=== PATIENT | female | born 1985 | race Caucasian/White ===

== ENCOUNTER 2024-08-20 10:14 | Emergency (ER) | payer SELFPAY ==
[2024-08-20 10:21] VITALS: BP 166/105; PULSE 87; RESP 18; TEMP 36.7; O2SAT 98
[2024-08-20 10:29] VITALS: PULSE 92; O2SAT 99
--- NOTE | 2024-08-20 11:15 | PD.EDRME ---
Rapid Medical Screening Exam RME Arrival date/time: 08/20/24 10:14 39-year-old female presents emergency department via EMS with complaints of elevated blood sugar Chief Complaint: Recheck/Abnormal Lab/Rx Vital signs: Vital Signs Temperature 98.1 F 08/20/24 10:21 Pulse Rate 87 08/20/24 10:21 Respiratory Rate 18 08/20/24 10:21 Blood Pressure 166/105 H 08/20/24 10:21 Pulse Oximetry (%) 98 08/20/24 10:21 Oxygen Delivery Method Room Air 08/20/24 10:21
[2024-08-20 11:31] LABS: Base Excess, Venous 0 (-3-3); O2 Saturation, Venous 99 % (96-97); PCO2, Venous 30 mmHg (36-56); PO2, Venous 91 mmHg (15-58); pH, Venous 7.49 (7.33-7.66)
[2024-08-20 11:34] LABS: Basophils # (Auto) 0.1 Thou/mm3 (0.0-0.2); Basophils % (Auto) 1 % (0-2.5); Eosinophils # (Auto) 0.3 Thou/mm3 (0.0-0.5); Eosinophils % (Auto) 4 % (0-10); Hematocrit 37.3 % (36.0-46.0); Immature Granulocytes % (Auto) 0 % (0-0); Immature Granulocytes Auto 0.03 Thou/mm3 (0.00-0.00); Lymphocytes # (Auto) 2.2 Thou/mm3 (1.0-4.8); Lymphocytes % (Auto) 27 % (10-50); Mean Corpuscular HGB Conc 34.9 g/dl (31.0-37.0); Mean Corpuscular Hemoglobin 30.8 pg (25.0-35.0); Mean Corpuscular Volume 88 fL (80-100); Monocytes # (Auto) 0.4 Thou/mm3 (0.0-0.8); Monocytes % (Auto) 5 % (0-12); Neutrophils # (Auto) 5.1 Thou/mm3 (1.8-7.7); Neutrophils % (Auto) 63 % (37-80); Nucleated Red Blood Cell % 0 /100 WBC (0); Platelet Count 328 Thou/mm3 (140-440); RDW Standard Deviation 41.8 fL (36.4-46.3); Red Blood Count 4.22 Miln/mm3 (4.00-5.20); White Blood Count 8.2 Thou/mm3 (3.6-11.0)
[2024-08-20 11:36] LABS: Beta Hydroxybutyrate 0.1 mmol/L (<0.6)
[2024-08-20 12:07] LABS: Alanine Aminotransferase 35 U/L (10-49); Albumin, Serum 3.9 gm/dL (3.5-5.0); Albumin/Globulin Ratio 1.1 (1.2-2.2); Alcohol, Blood Medical < 3.0 mg/dL (0-10.0); Alkaline Phosphatase 219 U/L (46-116); Anion Gap 8 (7-16); Aspartate Amino Transferase 25 U/L (0-34); BUN/Creatinine Ratio 14 Ratio (12-20); Bilirubin,Total 0.2 mg/dL (0.3-1.2); Blood Urea Nitrogen 10 mg/dL (9-23); Calcium 9.5 mg/dL (8.3-10.6); Calcium (Corrected) 9.6 mg/dL (8.5-10.1); Chloride 100 mMol/L (98-107); Creatinine (Component) 0.7 mg/dL (0.6-1.3); Globulin 3.5 gm/dL (2.3-3.5); Lipase 18 U/L (12-53); Osmolality,Calculated 288 (275-295); Potassium 3.9 mMol/L (3.4-5.1); Sodium 133 mMol/L (136-145); Total Protein 7.4 gm/dL (5.7-8.2); eGFR > 60 See Note
[2024-08-20 12:10] LABS: Glucose 521 mg/dL (74-106)
[2024-08-20 12:14] LABS: HCG,Qualitative Serum Negative
--- NOTE | 2024-08-20 13:16 | PC.NURSE ---
no answer in lobby when called for room in ed
[2024-08-20 14:01] LABS: Collection Type, Urine Clean Catch
[2024-08-20 14:20] LABS: Amphetamine/Methamp Scrn,U Positive (Negative); Barbiturate Screen,Urine Negative (Negative); Benzodiazepines Screen,Urine Negative (Negative); Benzoylecgonine Screen, Ur Negative (Negative); Fentanyl Screen,Urine Negative (Negative); Opiate Screen,Urine Negative (Negative); THC Screen,Urine Negative (Negative)
[2024-08-20 14:21] LABS: Bilirubin,Urine Negative (Negative); Blood,Urine Negative (Negative); Clarity,Urine Clear (Clear/Hazy); Color,Urine Lt-Yellow (Lt Yel-Yel); Culture Indicated,Urine Not Indicated; Glucose, Urine 4+ (Negative); Ketones,Urine Negative (Negative); Leukocyte Esterase,Urine Negative (Negative); Nitrite,Urine Negative (Negative); Protein,Urine Trace (Neg - Trace); RBC,Urine 2 /hpf (0-3); Specific Gravity,Urine 1.031 (1.001-1.035); Squamous Epithelial Cell,Urine 7 /hpf (0-5); Urobilinogen,Urine Negative mg/dL (0.0-1.0); WBC,Urine 1 /hpf (0-5)
--- NOTE | 2024-08-20 14:43 | PC.NURSE ---
not answering at this time.
--- NOTE | 2024-08-20 15:10 | PC.NURSE ---
pt not found in or outside of lobby x3. pt eloped.
[2024-08-20 15:20] VITALS: BP 167/99; PULSE 94; RESP 18; TEMP 37.1; O2SAT 96
--- NOTE | 2024-08-20 15:20 | PC.NURSE ---
PATIENT BACK IN [facility], WAS SEEN IN THE [facility]. REPEAT VS DONE AND MEDS ORDERED BY PROVIDER. PT EATING SNACKS AND PUTTING TRASH ALL OVER FLOOR. PATIENT YELLING OUT OF TRIAGE ROOM. STATING THAT NO ONE IS HELPING HER. I INFORMED PT THAT I AM GETTING HER MEDS. SHE WANTS TO MAKE SURE SHE IS GETTING PAIN MEDS, ANXIETY MEDS, AND MEDS FOR WITHDRAW. I INFORMED HER THAT I WILL BE BRINGING HER MEDS SHORTLY. PATIENT DOES NOT EXHIBIT ANY SYMPTOMS OF WITHDRAW AT THIS TIME.
--- NOTE | 2024-08-20 15:38 | PD.EDADULT ---
ED General RME/HPI General Chief complaint: Recheck/Abnormal Lab/Rx Stated complaint: HIGH BLOOD SUGAR 533; WEAKNESS Time Seen by Provider: 08/20/24 12:17 Arrival date/time: 08/20/24 10:14 RME / HPI RME / HPI narrative: 39-year-old female patient with significant history of diabetes mellitus, came in for evaluation regarding generalized body weakness, anxiety-like symptoms, and other complaints. Also complained that he is withdrawing from methamphetamine and alcohol. He is demanding for Ativan and Librium. Patient denies any vomiting denies any fever denies any abdominal pain. Patient told me that she uses meth amphetamine yesterday. And was drinking alcohol yesterday also. Related Data Home Medications ?Medication ?Instructions ?Recorded ?Confirmed INHALER ##0 01/15/14 Allergies Allergy/AdvReac Type Severity Reaction Status Date / Time ciprofloxacin Allergy Unknown Unverified 08/20/24 10:27 prednisone Allergy Unknown Unverified 08/20/24 10:27 sulfamethoxazole Allergy Unknown Unverified 08/20/24 10:27 trimethoprim Allergy Unknown Unverified 08/20/24 10:27 Review of Systems Review of Systems Narrative Review of Systems: Review of system reviewed and within normal limits except mentioned in HPI ED Exam Narrative Physical exam: VITAL SIGNS: Reviewed. GENERAL APPEARANCE: Alert and interactive, follows commands, no acute distress,, anxious, unkept HEAD AND FACE: Non-traumatic. ENT: PERRL, pink conjunctivitis, eyelid no trauma, Mucous membrane moist. NECK: Supple, nontender, no nuchal rigidity. CHEST: No tenderness, no crepitus, no paradoxical movement, no retractions. LUNGS: Clear, well ventilated, symmetric, no rales, no wheezing, no ronchi, no stridor, good breath sounds bilaterally. HEART: Regular rate, regular rhythm, no murmur, no gallops. ABDOMEN: Soft, positive bowel sounds, nondistended, no guarding, nontender, no rebound, no masses, RECTAL: Deferred. GENITAL: Deferred. NEUROLOGICAL: Gross motor function intact sensory function intact, Appropriate for age. MUSCULOSKELETAL: low back nontender, full range of motion. EXTREMITIES: Nontender, full range of motion. SKIN: Color pink, dry, no rash, no lacerations, no abrasions, no contusions. LYMPHATICS: Deferred. Course Quality Measures none Orders Category Date Time Status Insert IV NOW Care 08/20/24 11:15 Active Alcohol, Blood Medical Stat Lab 08/20/24 11:21 Completed Beta Hydroxybutyrate Stat Lab 08/20/24 11:21 Completed CBC Stat Lab 08/20/24 11:21 Completed Comprehensive Metabolic Panel Stat Lab 08/20/24 11:21 Completed Drug Screen,Urine Stat Lab 08/20/24 13:42 Completed HCG,Qualitative Serum Stat Lab 08/20/24 11:21 Completed Lipase Stat Lab 08/20/24 11:21 Completed UA, C/S IF [Urinalysis, C/S if Indicated] Stat Lab 08/20/24 13:42 Completed VBG [Venous Blood Gas] Stat Lab 08/20/24 11:21 Completed Insulin Regular Med 08/20/24 12:50 Discontinued 10 unit IV X1 ONE Insulin Regular Med 08/20/24 15:34 Discontinued 10 unit SC X1 ONE LORazepam [Ativan] Med 08/20/24 15:34 Discontinued 0.5 mg PO X1 ONE Sodium Chloride 0.9% 1000 ml [Ns] 1,000 ml Med 08/20/24 12:50 Discontinued IV 999 mls/hr chlordiazePOXIDE HCl [Librium] Med 08/20/24 15:34 Discontinued 25 mg PO X1 ONE Vital Signs Vital signs: Vital Signs Temperature 98.1 F 08/20/24 10:21 Pulse Rate 87 08/20/24 10:21 Respiratory Rate 18 08/20/24 10:21 Blood Pressure 166/105 H 08/20/24 10:21 Pulse Oximetry (%) 98 08/20/24 10:21 Oxygen Delivery Method Room Air 08/20/24 10:21 [facility] Patient data External records reviewed:: None Clinical information provided by:: patient Social determinants that could affect healthcare access:: substance use Patient has the following chronic illnesses:: Diabetes mellitus How is presenting disease/condition affected by chronic disease/condition?: exacerbated by Evaluation data The following diagnostics were reviewed and interpreted by me:: lab results and radiology exam(s) Lab and/or radiology exams considered but not ordered:: None Interpretation Summary: Patient's blood sugar was noted to be 521, with no sign of DKA. Drug screening is positive for methamphetamine. Medications Medications considered but not ordered:: None Medication administrations:: Medication Administration History Discontinued Medications Chlordiazepoxide HCl (Chlordiazepoxide Hcl 25 Mg Capsule) 25 mg PO X1 ONE Stop: 08/20/24 15:35 Sodium Chloride (Ns) 1,000 mls @ 999 mls/hr IV .Q1H1M ONE Stop: 08/20/24 13:50 Insulin Human Regular (Insulin Hum Regular 1 Unit/0.01 Ml (Per Unit)) 10 unit IV X1 ONE Stop: 08/20/24 12:51 Insulin Human Regular (Insulin Hum Regular 1 Unit/0.01 Ml (Per Unit)) 10 unit SC X1 ONE Stop: 08/20/24 15:35 Lorazepam (Lorazepam 0.5 Mg Tablet) 0.5 mg PO X1 ONE Stop: 08/20/24 15:35 Librium, regular insulin , patient was also given Ativan Consultations Consultation(s) initiated? (list below): No Diagnosis Differential Diagnosis ED Complaint MDM: Hyperglycemia methamphetamine abuse, anxiety Most likely diagnosis given after review of the tests above:: Homelessness, hyperglycemia, methamphetamine abuse, anxiety Admission Indicated Admission indicated?: not indicated Explain why admission is indicated or not indicated:: Stable Admission Request Was there a request for admission?: No Disposition Plan Disposition Plan: Discharge Discharge Attestation Discharge Attestation: The patient and all family members were given an opportunity to ask questions and understood the discharge instructions. Discharge instructions specifically effects, indications for sooner follow up or return to the emergency department, and the expected course of current diagnosis. Patient condition: Stable Medical Decision Making MDM Narrative MDM Narrative: 39-year-old female patient with significant history of diabetes mellitus, came in for evaluation regarding generalized body weakness, anxiety-like symptoms, and other complaints. Also complained that he is withdrawing from methamphetamine and alcohol. He is demanding for Ativan and Librium. Patient denies any vomiting denies any fever denies any abdominal pain. Patient told me that she uses meth amphetamine yesterday. And was drinking alcohol yesterday also. Patient blood sugar was noted to be 521 , with no sign of diabetic ketoacidosis. The rest of the labs is unremarkable except positive for meth. Urinalysis no UTI. Repeat blood sugar prior to giving insulin was 492 Patient was given regular insulin subcu, Ativan and Librium Differential Diagnosis Differential Diagnosis: Hyperglycemia methamphetamine abuse, anxiety Lab Data 08/20/24 11:21 08/20/24 11:21 Labs: Lab Results 08/20/24 08/20/24 Range/Units 11:21 13:42 WBC 8.2 (3.6-11.0) Thou/mm3 RBC 4.22 (4.00-5.20) Miln/mm3 Hgb 13.0 (12.0-16.0) g/dL Hct 37.3 (36.0-46.0) % MCV 88 (80-100) fL MCH 30.8 (25.0-35.0) pg MCHC 34.9 (31.0-37.0) g/dl RDW Std Deviation 41.8 (36.4-46.3) fL Plt Count 328 (140-440) Thou/mm3 Neut % (Auto) 63 (37-80) % Lymph % (Auto) 27 (10-50) % [place] % (Auto) 5 (0-12) % Eos % (Auto) 4 (0-10) % Baso % (Auto) 1 (0-2.5) % Neut # (Auto) 5.1 (1.8-7.7) Thou/mm3 Lymph # (Auto) 2.2 (1.0-4.8) Thou/mm3 [place] # (Auto) 0.4 (0.0-0.8) Thou/mm3 Eos # (Auto) 0.3 (0.0-0.5) Thou/mm3 Baso # (Auto) 0.1 (0.0-0.2) Thou/mm3 Immature Gran # (Auto) 0.03 H (0.00-0.00) Thou/mm3 Absolute Nucleated RBC 0.00 (0.00-0.00) Thou/mm3 Immature Gran % 0 (0-0) % Nucleated RBC % 0 (0) /100 WBC VBG pH 7.49 (7.33-7.66) VBG pCO2 30 L (36-56) mmHg VBG pO2 91 H (15-58) mmHg VBG O2 Sat (Fox) 99 H (96-97) % VBG Base Excess 0 (-3-3) Sodium 133 L (136-145) mMol/L Potassium 3.9 (3.4-5.1) mMol/L Chloride 100 (98-107) mMol/L Carbon Dioxide 25.0 (20.0-31.0) mMol/L Anion Gap 8 (7-16) BUN 10 (9-23) mg/dL Creatinine 0.7 (0.6-1.3) mg/dL Estim Creat Clear Calc Not Performed. eGFR > 60 (60 - ) See Note BUN/Creatinine Ratio 14 (12-20) Ratio Glucose 521 H* (74-106) mg/dL Estimated Ave Glu mg/dL Cancelled Hemoglobin A1c Cancelled Calculated Osmolality 288 (275-295) Calcium 9.5 (8.3-10.6) mg/dL Corrected Calcium 9.6 (8.5-10.1) mg/dL Total Bilirubin 0.2 L (0.3-1.2) mg/dL AST 25 (0-34) U/L ALT 35 (10-49) U/L Alkaline Phosphatase 219 H (46-116) U/L Total Protein 7.4 (5.7-8.2) gm/dL Albumin 3.9 (3.5-5.0) gm/dL Globulin 3.5 (2.3-3.5) gm/dL Albumin/Globulin Ratio 1.1 L (1.2-2.2) Lipase 18 (12-53) U/L Beta-Hydroxybutyrate/Acetoacetate 0.1 (<0.6) mmol/L HCG, Qual Negative Ur Collection Type Clean Catch Urine Color Lt-Yellow (Lt Yel-Yel) Urine Clarity Clear (Clear/Hazy) Urine pH 6.0 (5.0-7.0) Ur Specific [place] 1.031 (1.001-1.035) Urine Protein Trace (Neg - Trace) Urine Glucose (UA) 4+ A (Negative) Urine Ketones Negative (Negative) Urine Blood Negative (Negative) Urine Nitrite Negative (Negative) Urine Bilirubin Negative (Negative) Urine Urobilinogen (Auto) Negative (0.0-1.0) mg/dL Ur Leukocyte Esterase Negative (Negative) Urine RBC 2 (0-3) /hpf Urine WBC 1 (0-5) /hpf Ur Squamous Epith Cells 7 H (0-5) /hpf Urine Bacteria None (None) Ur Culture Indicated? Not Indicated Urine Opiates Screen Negative (Negative) Urine Fentanyl Screen Negative (Negative) Ur Barbiturates Screen Negative (Negative) U Amphetamin/Meth Scrn Positive A (Negative) U Benzodiazepines Scrn Negative (Negative) U Cocaine Metab Screen Negative (Negative) U Marijuana (THC) Screen Negative (Negative) Ethyl Alcohol < 3.0 (0-10.0) mg/dL Discharge Plan Plan Patient Disposition: HOME (Self Care) Disposition Comment: Stable Prescriptions/Referrals Prescriptions/Med Rec: No Action INHALER Qty: 0 Referrals: No Primary/Family,Physician [Primary Care Provider] - In 1 week Problem List Clinical Impression: Hyperglycemia, Anxiety, Homelessness Patient/Caregiver Discharge Instructions Discharge Activity: activity as tolerated Education Materials: How to Check Your Blood Sugar, Treating Anxiety Disorders ... Additional Instructions: Thank you for the opportunity for serving you today. You are stable for discharged . You are advised to: Follow-up with your PCP in 1 to 2 days Return to ED for worsening of symptoms Increase oral fluids Take your medication for diabetes prescriber your PCP Print Language: German Stand Alone Forms: [employer] Award Info., Patient Portal Info Letter
[2024-08-20] MEDS: LORazepam 0.5 MG TABLET PO (15:47)
[2024-08-20] MEDS: chlordiazePOXIDE HCl 25 MG CAPSULE PO (15:47)
[2024-08-20] MEDS: INSULIN HUM REGULAR 1 UNIT/0.01 ML (PER UNIT) 10 UNIT SC (15:48)
--- NOTE | 2024-08-20 15:48 | PC.NURSE ---
PATIENT GIVEN MEDICATION ORDERED. I INFORMED PT THAT SHE WILL BE DISCHARGED AT THIS TIME. PT REFUSING STATING SHE HAS MEDICAL CONDITIONS THAT NEED TO BE FIXED. I INFORMED HER THAT WE DID LABS AND HER SUGAR IS ELEVATED SO THAT'S WHY I GAVE HER INSULIN. SHE NEEDS TO TAKE HER MEDICATIONS PRESCRIBE AND DRINK LOTS OF FLUIDS. PATIENT STATES I AM HOMELESS HOW AM I GOING TO DRINK FLUIDS . I INFORMED PT THAT THERE ARE MANY RESOURCES FOR HOMELESS PATIENTS WITH FOOD SERVICES. PT ASKING FOR MARKETING FINANCE MANAGER. I INFORMED PT THAT I WILL HAVE STREET INSPECTOR COME AND TALK WITH HER. PT BEING VERBALLY ABUSIVE. 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 PT ASKED TO BE POLITE WE ARE TRYING TO HELP HER. PT CONTINUES TO BE VERBALLY INAPPROPRIATE. SECURITY AWARE AND ESCORTED PT TO LOBBY. PT INFORMED THAT I WILL HAVE STREET INSPECTOR COME AND SPEAK WITH HER. PT LEFT THE ED WAITING ROOM.
[2024-08-21 09:55] LABS: Misc Send Out* See Sep Rpt
== END 2024-08-20 16:08 | disposition home or self-care (01) ==
PROVIDERS: Nurse Practitioner Primary Care; Emergency Provider Emergency Medicine
DX: E11.65 Type 2 diabetes mellitus with hyperglycemia (principal); F41.9 Anxiety disorder, unspecified; Z59.00 Homelessness unspecified
CPT/HCPCS: 36415; 80053; 80307; 80320; 81001; 82010; 82803; 83036; 83690; 84703; 85025; 96372; 99283; J1815; A9270; G0480